=== PATIENT | female | born 1945 | race Caucasian/White ===

== ENCOUNTER 2022-01-19 10:38 | Emergency (ER) | payer OTHER ==
[~2022-01-19] VITALS: Ht 154.9 cm; Wt 64.9 kg
--- NOTE | 2022-01-19 10:40 | NUR ---
RECEIVED PT 76 YRS FEMALE CAME FROM HOME C/O DIZZNESS AWAKE AND ALERT C/O NUSEAN AND VOMITING
[2022-01-19] MEDS ORDERED: MECLIZINE HCL 12.5 MG TABLET PO ONE (11:00)
[2022-01-19] MEDS ORDERED: ONDANSETRON HCL/PF 4 MG/2 ML VIAL IVP ONE (11:00)
[2022-01-19] MEDS ORDERED: IV NS 0.9% 1,000 ML BAG IV ONE (11:00)
--- NOTE | 2022-01-19 11:05 | NUR ---
BLOOD DROW BY LAB TACK AT BED SIDE
[2022-01-19] MEDS ORDERED: ONDANSETRON HCL/PF 4 MG/2 ML VIAL ONE ×2 (11:20→21:36)
[2022-01-19] MEDS ORDERED: MECLIZINE HCL 25 MG TABLET ONE (11:20)
--- NOTE | 2022-01-19 11:42 | NUR ---
BEN AT BED SIDE ( DAYAN TORREZ )
[2022-01-19 11:51] LABS: BASOPHILS % (AUTO) 0.3 % (0.0-2.0); EOSINOPHILS % (AUTO) 0.6 % (0.0-6.0); HEMATOCRIT 40 % (33-45); LYMPHOCYTES # (AUTO) 1.5 K/uL (0.8-4.8); LYMPHOCYTES % (AUTO) 17.5 % (20.0-44.0); MEAN CORPUSCULAR HGB CONC 33 g/dl (31.0-36.0); MEAN CORPUSCULAR VOLUME 83 fL (82-100); MONOCYTES # (AUTO) 0.6 K/uL (0.1-1.30); MONOCYTES % (AUTO) 6.5 % (2.0-12.0); NEUTROPHILS # (AUTO) 6.5 K/uL (1.8-8.9); NEUTROPHILS % (AUTO) 75.1 % (43.0-81.0); PLATELET COUNT (AUTO) 261 K/uL (150-450); RED BLOOD CELL COUNT(AUTO) 4.84 MIL/uL (4.0-5.2); WHITE BLOOD COUNT (AUTO) 8.7 K/uL (4.3-11.0)
[2022-01-19 12:04] LABS: ALANINE AMINOTRANSFERASE 9 U/L (12-78); ALBUMIN 3.5 g/dL (3.4-5.0); ALKALINE PHOSPHATASE 56 U/L (46-116); ASPARTATE AMINOTRANSFERASE 20 U/L (15-37); BILIRUBIN,DIRECT 0.1 mg/dL (0.0-0.2); BILIRUBIN,TOTAL 0.3 mg/dL (0.2-1.0); CALCIUM, SERUM 8.7 mg/dL (8.5-10.1); CARBON DIOXIDE 25 mmol/L (21-32); CREATININE 1.7 mg/dL (0.6-1.3); GLUCOSE 129 mg/dL (74-106); UREA NITROGEN, BLOOD 39 mg/dL (7-18)
[2022-01-19 12:11] LABS: CHLORIDE 105 mmol/L (98-107); SODIUM SERUM 140 mmol/L (136-145)
[2022-01-19 12:28] LABS: POTASSIUM 2.8 mmol/L (3.5-5.1)
[2022-01-19] MEDS ORDERED: POTASSIUM CHLORIDE 20 MEQ TAB.PRT.SR PO ONE ×2 (13:00→13:10)
[2022-01-19] MEDS ORDERED: POTASSIUM CL. PREMIX PERIPHER. 50 ML ONE ×4 (13:09→18:39)
--- NOTE | 2022-01-19 13:30 | NUR ---
MOVE SHEET SUBMITTED.
[2022-01-19] MEDS: POTASSIUM CL. PREMIX PERIPHER. 50 ML IV SCH ×4 (13:42→18:44)
--- NOTE | 2022-01-19 14:16 | NUR ---
[facility] [phone]
--- NOTE | 2022-01-19 14:36 | NUR ---
YELENA FITCH SENT [facility]PO [facility]
--- NOTE | 2022-01-19 15:25 | NUR ---
UA SENT TO LAB
--- NOTE | 2022-01-19 16:25 | NUR ---
AWAITING DIPOSITION OF PATIENT BY .
--- NOTE | 2022-01-19 17:47 | NUR ---
[facility] [phone] REQUESTING COVID FAXED TO [phone]
--- NOTE | 2022-01-19 18:45 | NUR ---
pt not colorated po incak c/o n/v after cracker and apple j
--- NOTE | 2022-01-19 19:27 | NUR ---
HAND OFF KITIA
[2022-01-19 19:32] VITALS: BP 129/67
--- NOTE | 2022-01-19 21:45 | NUR ---
ACCEPTED AT [facility] [address]OM [address] [place] #
--- NOTE | 2022-01-19 21:55 | NUR ---
[facility] ETA:[id number]
[2022-01-19] MEDS ORDERED: ONDANSETRON HCL/PF 4 MG/2 ML VIAL IV ONE (22:00)
--- NOTE | 2022-01-19 22:26 | NUR ---
REPORT GIVEN TO
--- NOTE | 2022-01-19 23:10 | NUR ---
[facility] AT BED SIDE
--- NOTE | 2022-01-19 23:12 | NUR ---
[facility] [address] AT BEDSIDE FOR REPORT. PACKET AND REPORT PROVIDED TO TRAINING CONSULTANT.
== END 2022-01-19 23:12 | disposition short-term general hospital (02) ==
LOC: ER 11:35
DX: E87.6 Hypokalemia (principal); R42 Dizziness and giddiness; Z20.822 Contact with and (suspected) exposure to COVID-19; I25.2 Old myocardial infarction; Z95.5 Presence of coronary angioplasty implant and graft; I10 Essential (primary) hypertension
CPT/HCPCS: 99291; 96374; 96361 ×2; 70450; 87426; 93005; 71045; 96376; 85025; 80048; 80076; 83735; 36415; 84484 ×2; 85730; J8597; J2405 ×2; J7030; J3480 ×4; C9803